=== PATIENT | male | born 1970 | race Caucasian/White ===

== ENCOUNTER 2022-04-29 14:58 | Outpatient (CLI) | payer OTHER, SELFPAY | END 2022-04-29 14:59 | disposition home or self-care (01) | PROVIDERS: PCP Family Medicine; Visit Provider Family Medicine | DX: Z00.00 Encounter for general adult medical examination without abnormal findings (principal); E11.9 Type 2 diabetes mellitus without complications; I10 Essential (primary) hypertension; R73.03 Prediabetes | CPT/HCPCS: 80048; 80061; 84153 ==

== ENCOUNTER 2022-10-28 08:30 | Outpatient (CLI) | payer OTHER, SELFPAY | END 2022-10-28 08:31 | disposition home or self-care (01) | LOC: NFLDREF 11-04 14:19 | PROVIDERS: PCP Family Medicine; Referring Provider Family Medicine; Visit Provider Family Medicine | DX: E11.9 Type 2 diabetes mellitus without complications (principal) | CPT/HCPCS: 80061 ==

== ENCOUNTER 2023-07-21 14:49 | Outpatient (CLI) | payer OTHER, SELFPAY | END 2023-07-21 14:50 | disposition home or self-care (01) | LOC: LKVREF 14:53 | PROVIDERS: PCP Family Medicine; Visit Provider Family Medicine | DX: Z00.00 Encounter for general adult medical examination without abnormal findings (principal); E66.9 Obesity, unspecified; E11.9 Type 2 diabetes mellitus without complications; I10 Essential (primary) hypertension; Z12.5 Encounter for screening for malignant neoplasm of prostate | CPT/HCPCS: 80053; 80061; 82043; 82570; G0103 ==

== ENCOUNTER 2024-07-23 07:58 | Outpatient (CLI) | payer OTHER, SELFPAY | END 2024-07-23 07:59 | disposition home or self-care (01) | PROVIDERS: PCP Family Medicine; Referring Provider Family Medicine; Visit Provider Family Medicine | DX: E11.9 Type 2 diabetes mellitus without complications (principal); I10 Essential (primary) hypertension; Z12.5 Encounter for screening for malignant neoplasm of prostate | CPT/HCPCS: 80053; 80061; 82043; 82570; G0103 ==